=== PATIENT | male | born 1980 | race African-American/Black ===

== ENCOUNTER 2023-12-28 20:43 | Emergency (ER) | payer SELFPAY ==
[~2023-12-28] VITALS: Ht 177.8 cm; Wt 80.0 kg
[2023-12-28 20:59] VITALS: BP 127/74; PULSE 69; RESP 18; TEMP 98.7; O2SAT 99
[2023-12-28] MEDS ORDERED: IBUP-2029 MT (22:12)
[2023-12-28] MEDS: IBUPROFEN 600MG TABLET PO ONE (22:15)
== END 2023-12-28 23:57 | disposition home or self-care (01) ==
LOC: ER 20:43
DX: S90.02XA Contusion of left ankle, initial encounter (principal); W10.8XXA Fall (on) (from) other stairs and steps, initial encounter; Y93.89 Activity, other specified; Y92.89 Other specified places as the place of occurrence of the external cause; Y99.8 Other external cause status
CPT/HCPCS: 73610; 73630; 29515; 99284; Z7610